=== PATIENT | male | born 1985 | race Caucasian/White ===

== ENCOUNTER 2022-09-06 17:50 | Emergency (ER) | payer SELFPAY ==
[2022-09-06 17:57] VITALS: BP 124/65; PULSE 88; RESP 16; TEMP 37.4; O2SAT 96; BMI 18.6
--- NOTE | 2022-09-06 17:57 | XRR_ITS ---
PROCEDURE INFORMATION: Exam: XR Chest Exam date and time: 09/06/2022 6:37 PM Age: 37 years old Clinical indication: Pain; Cough and shortness of breath; Chest pressure; Additional info: Cp TECHNIQUE: Imaging protocol: Radiologic exam of the chest. Views: 1 view. COMPARISON: No relevant prior studies available. FINDINGS: Lungs: Unremarkable. No consolidation. Pleural spaces: Unremarkable. No pleural effusion. No pneumothorax. Heart/Mediastinum: Unremarkable. No cardiomegaly. Bones/joints: Unremarkable. XR/XR chest 1V portable [id number] IMPRESSION: No acute findings.
--- NOTE | 2022-09-06 18:05 | ECG_ITS ---
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 Measurements Intervals [place] Rate: 67 P: 85 MO: 128 QRS: 93 QRSD: 89 T: 77 QT: 368 QTc: 389 Interpretive Statements SINUS RHYTHM WITH MARKED SINUS ARRHYTHMIA BORDERLINE RIGHT AXIS DEVIATION [QRS AXIS > 90] NONSPECIFIC ST & T-WAVE ABNORMALITY No previous ECG available for comparison Electronically Signed On 09-07-2022 14:18:55 TORQUE TESTER by Kermit Francis M.D. [id number]
[2022-09-06 18:06] VITALS: BP 125/73; PULSE 73; RESP 16; O2SAT 93
[2022-09-06 18:32] VITALS: RESP 16; O2SAT 98
[2022-09-06 18:32] LABS: Basophils % 0.3 %; Hematocrit 40.8 % (42.0-52.0); Hemoglobin 13.8 g/dL (11.7-16.6); Lymphocytes % 6.8 %; Mean Corpuscular HGB Conc 33.8 g/dL (30.0-36.0); Mean Corpuscular Hemoglobin 31.5 pg (28.0-34.0); Mean Corpuscular Volume 93.2 fl (80-94); Mean Platelet Volume 9.8 fL (7.4-10.4); Monocytes # 0.9 10^3/uL (0.2-0.9); Monocytes % 6.2 %; Neutrophils # 12.86 10^3/uL (1.8-7.7); Neutrophils % 86.2 %; Nucleated Red Blood Cells % 0 %; Platelet Count 243 10^3/cmm (130-400); Red Blood Count 4.38 10^6/uL (4.1-5.3); Red Cell Distribution Width 13.3 % (12.1-15.1); White Blood Count 14.9 10^3/uL (4.0-10.0)
[2022-09-06] MEDS: morphine 4 mg/mL SDV 1 mL IVP (18:32)
[2022-09-06] MEDS: ondansetron 2 mg/ML SDV 2 mL 4 MG IVP (18:33)
[2022-09-06 18:34] VITALS: BP 126/70; PULSE 82; RESP 16; O2SAT 94
--- NOTE | 2022-09-06 18:35 | W.ED.CHESTPA ---
HPI - Chest Pain General: Chief Complaint: Chest Pain Stated Complaint: chest pain Time Seen by Provider: 09/06/22 17:57 Source: patient and EMS Mode of arrival: EMS History of Present Illness: 37-year-old male states he had a cough over the last 2 days. He states that he started having some sharp right-sided pain he states is worse with palpation and with his cough he denies any shortness of breath he denies any vomiting or diarrhea states is improved with rest. Associated symptoms: Deny abdominal pain, fever(s), nausea or vomiting Review of Systems Const: Denies: fever(s), chills, body aches or change in appetite Eyes: Denies: blurry vision or eye discomfort ENMT: Denies: throat pain or dental pain Card: Reports: chest pain Resp: Reports: non-productive cough GI: Denies: abdominal pain, nausea, vomiting or diarrhea : Denies: dysuria Musc: Denies: neck pain or back pain Skin/Breast: Denies: rash Neuro: Denies: headache(s) Psych: Denies: depression [place]/Lymph: Denies: easy bruising All/Imm: Denies: urticaria PFSH ED PFSH: Medical History No pertinent past medical history Social History (Updated 09/06/22 @ 18:36 by Ani Bustillo MD) Alcohol intake: never Physical Exam Const: COMMON NORMALS: no acute distress, patient oriented x3 and healthy appearing HENMT: COMMON NORMALS: normocephalic and atraumatic HEAD & SCALP: normocephalic and atraumatic Eye: COMMON NORMALS: Equal, round and reactive pupils present and EOMs intact bilaterally PUPIL: Yes Equal, round and reactive pupils present Neck/C-Spine: COMMON NORMALS: full ROM and supple Chest: COMMONS NORMALS: normal inspection of the chest OTHER: point tender over right chest wall Resp: COMMON NORMALS: normal respiratory effort, No retractions, No use of accessory muscles and clear to auscultation bilaterally AUSCULTATION: clear to auscultation bilaterally Cardio: COMMON NORMALS: regular rate, regular rhythm and No murmurs present (Cardio) RATE: regular rate RHYTHM: regular rhythm GI: COMMON NORMALS: Normal to inspection, nondistended, normoactive bowel sounds present, Soft to palpation, non-tender and no masses PALPATION: Yes Soft to palpation Extremity: COMMON NORMALS: normal to inspection and full ROM Neuro: COMMON NORMALS: patient oriented x3, moves all extremities and no focal motor deficits Psych: COMMON NORMALS: mental status grossly normal, Normal thought process present and cooperative THOUGHT PROCESS: Normal thought process present Skin: COMMON NORMALS: no rashes or lesions noted and no wounds GENERAL SKIN EXAM: no rashes or lesions noted Course Vital Signs: Vital signs: Vital Signs Temperature 99.3 F 09/06/22 17:57 Pulse Rate 82 09/06/22 18:34 Respiratory Rate 16 09/06/22 18:34 Blood Pressure 126/70 09/06/22 18:34 Pulse Oximetry 94 09/06/22 18:34 Oxygen Delivery Me thod 09/06/22 18:34 MDM - Chest Pain Medical Decision Making Patient presents here with chest wall pain likely from coughing his troponin here is negative so his x-ray no pneumonia no pneumothorax pain is much improved here he is point tender on exam he is stable for discharge we will prescribe him Naprosyn he is to follow-up with PCP and return if worsening. Lab Data 09/06/22 18:19 09/06/22 18:19 Radiology Impressions Chest X-Ray 09/06/22 17:57 IMPRESSION: No acute findings. Laboratory Results WBC 14.9 10^3/uL (4.0-10.0) H 09/06/22 18:19 RBC 4.38 10^6/uL (4.1-5.3) 09/06/22 18:19 Hgb 13.8 g/dL (11.7-16.6) 09/06/22 18:19 Hct 40.8 % (42.0-52.0) L 09/06/22 18:19 MCV 93.2 fl (80-94) 09/06/22 18:19 MCH 31.5 pg (28.0-34.0) 09/06/22 18:19 MCHC 33.8 g/dL (30.0-36.0) 09/06/22 18:19 RDW 13.3 % (12.1-15.1) 09/06/22 18:19 Plt Count 243 10^3/cmm (130-400) 09/06/22 18:19 MPV 9.8 fL (7.4-10.4) 09/06/22 18:19 Neut % (Auto) 86.2 % 09/06/22 18:19 Lymph % (Auto) 6.8 % 09/06/22 18:19 [place] % (Auto) 6.2 % 09/06/22 18:19 Eos % (Auto) 0.0 % 09/06/22 18:19 Baso % (Auto) 0.3 % 09/06/22 18:19 Neut # (Auto) 12.86 10^3/uL (1.8-7.7) H 09/06/22 18:19 Lymph # (Auto) 1.0 10^3/uL (0.8-4.8) 09/06/22 18:19 [place] # (Auto) 0.9 10^3/uL (0.2-0.9) 09/06/22 18:19 Eos # (Auto) 0.0 10^3/uL (0.0-0.8) 09/06/22 18:19 Baso # (Auto) 0.0 10^3/uL (0.0-0.1) 09/06/22 18:19 Nucleated RBC % (auto) 0 % 09/06/22 18:19 Nucleated RBCs # 0.0 /100WBC 09/06/22 18:19 Sodium 135 mmol/L (136-145) L 09/06/22 18:19 Potassium 3.9 mmol/L (3.5-5.1) 09/06/22 18:19 Chloride 96 mmol/L (98-107) L 09/06/22 18:19 Carbon Dioxide 24 mmol/L (22-29) 09/06/22 18:19 Anion Gap 18.9 (5-19) 09/06/22 18:19 BUN 9 mg/dL (6-20) 09/06/22 18:19 Creatinine 0.8 mg/dL (0.7-1.2) 09/06/22 18:19 GFR Calculation 108.8 mL/min (90-130) 09/06/22 18:19 Glucose 100 mg/dL (65-115) 09/06/22 18:19 Calculated Osmolality 279 mOsm/kg (285-295) L 09/06/22 18:19 Calcium 9.1 mg/dL (8.5-10.5) 09/06/22 18:19 Total Bilirubin 0.5 mg/dL (0.15-1.2) 09/06/22 18:19 AST 18 U/L (0-40) 09/06/22 18:19 ALT 18 U/L (0-41) 09/06/22 18:19 Alkaline Phosphatase 104 U/L (40-130) 09/06/22 18:19 Troponin T Baseline 6 ng/L (0-15) 09/06/22 18:19 Total Protein 7.1 g/dL (6.6-8.7) 09/06/22 18:19 Albumin 4.1 g/dL (3.5-5.2) 09/06/22 18:19 Globulin 3.0 g/dL (1.3-4.6) 09/06/22 18:19 EKG Data EKG 1: I personally reviewed and interpreted this EKG as follows: EKG interpretation date: 09/06/22 EKG interpretation time: 18:05 Interpretation: nsr hr [address] or t wave abnormalities qrs 89 qtc 383 Discharge Plan Discharge Patient Disposition: Home Clinical Impression: Chest wall pain Prescriptions: New Naprosyn 500 mg tablet 500 mg PO BID PRN (Reason: pain) Qty: 20 0RF Discharge Orders: Discharge ED (Routine); Ordered 09/06/22 Ordered By: Ani Bustillo Discharge Diet: Advance as tolerated Discharge Activity: Resume usual activity Patient Instructions: Chest Wall Pain (ED) Coding Level of Care Code ED Steel Finisher for Ryanng Micaela
[2022-09-06 18:56] LABS: Troponin(5th) Baseline 6 ng/L (0-15)
[2022-09-06 18:58] LABS: Alanine Aminotransferase 18 U/L (0-41); Albumin Level 4.1 g/dL (3.5-5.2); Alkaline Phosphatase 104 U/L (40-130); Aspartate Amino Transferase 18 U/L (0-40); Blood Urea Nitrogen 9 mg/dL (6-20); Calcium 9.1 mg/dL (8.5-10.5); Carbon Dioxide 24 mmol/L (22-29); Chloride 96 mmol/L (98-107); Glomerular Filtration Rate 108.8 mL/min (90-130); Glucose 100 mg/dL (65-115); Osmolality Calculated 279 mOsm/kg (285-295); Sodium 135 mmol/L (136-145); Total Bilirubin 0.5 mg/dL (0.15-1.2); Total Protein 7.1 g/dL (6.6-8.7)
[2022-09-06 18:59] LABS: Anion Gap 18.9 (5-19); Potassium 3.9 mmol/L (3.5-5.1)
[2022-09-06 19:59] VITALS: BP 120/77; PULSE 81; RESP 17; O2SAT 95
[2022-09-06 20:02] VITALS: BP 123/66; PULSE 68; RESP 17; O2SAT 95
== END 2022-09-06 20:05 | disposition home or self-care (01) ==
PROVIDERS: Emergency Provider Emergency Medicine
DX: R07.89 Other chest pain (principal)
CPT/HCPCS: 36415; 71045; 80053; 84484; 85025; 93005; 96374; 96375; 99285; J2270; J2405

== ENCOUNTER 2023-04-05 22:48 | Emergency (ER) | payer SELFPAY ==
[2023-04-05 22:52] VITALS: BP 113/72; PULSE 78; RESP 20; TEMP 36.8; O2SAT 97; BMI 16.7
--- NOTE | 2023-04-05 22:54 | XRR_ITS ---
PROCEDURE INFORMATION: Exam: XR Chest Exam date and time: 04/05/2023 11:13 PM Age: 37 years old Clinical indication: Cough TECHNIQUE: Imaging protocol: Radiologic exam of the chest. Views: 1 view. COMPARISON: CR XR chest 1V portable [id number] 09/06/2022 6:37 PM FINDINGS: Lungs: Unremarkable. No consolidation. Pleural spaces: Unremarkable. No pleural effusion. No pneumothorax. Heart/Mediastinum: Unremarkable. No cardiomegaly. Bones/joints: Unremarkable. XR/XR chest 1V portable [id number] IMPRESSION: No acute findings.
--- NOTE | 2023-04-05 22:59 | W.ED.SOB ---
HPI - SOB/Dyspnea General: Chief Complaint: Shortness of Breath/Dyspnea Stated Complaint: right lung pain,cough Time Seen by Provider: 04/05/23 22:59 History of Present Illness: HPI Narrative: 37-year-old male patient comes in tonight for persistent cough for 1 week with fever yesterday. Patient reports that he coughed real hard tonight causing significant right chest wall pain anteriorly. Patient appears in moderate pain. Patient appears nontoxic. Patient has no chronic medical problems. Patient does smoke tobacco. Associated symptoms: Deny fever(s) Review of Systems General: Reports: 10 or more systems reviewed and unremarkable except in HPI and below Const: Denies: fever(s) Resp: Reports: dyspnea and pain on inspiration Musc: Reports: other (Right anterior chest wall pain) Neuro: Denies: headache(s) PFSH ED PFSH: Medical History No pertinent past medical history Social History (Updated 09/06/22 @ 18:36 by Ani Bustillo MD) Alcohol intake: never Physical Exam Const: COMMON NORMALS: alert HENMT: COMMON NORMALS: normocephalic HEAD & SCALP: normocephalic MOUTH: Normal oral and palatal mucosa present Neck/C-Spine: COMMON NORMALS: full ROM Chest: CHEST: Yes tenderness (Right anterior chest, no crepitus or flailing) Resp: COMMON NORMALS: clear to auscultation bilaterally AUSCULTATION: clear to auscultation bilaterally Cardio: COMMON NORMALS: regular rate and regular rhythm RATE: regular rate RHYTHM: regular rhythm GI: COMMON NORMALS: non-tender Back/Pelvis: COMMON NORMALS: thoracic and lumbar spine normal to inspection Extremity: COMMON NORMALS: normal to inspection Neuro: SENSORIUM/ORIENTATION: Yes alert Skin: COMMON NORMALS: turgor normal GENERAL SKIN EXAM: turgor normal Course Vital Signs: Vital signs: Vital Signs Temperature 98.3 F 04/05/23 22:52 Pulse Rate 77 04/05/23 23:11 Respiratory Rate 18 04/05/23 23:11 Blood Pressure 120/59 04/05/23 23:11 Pulse Oximetry 97 04/05/23 23:11 Oxygen Delivery Me thod Room Air 04/05/23 23:11 MDM - SOB/Dyspnea Medical Decision Making 37-year-old male patient comes in today for complaints of right anterior chest wall pain. On exam patient has some chest wall tenderness to palpation. No crepitus or flailing of the chest is noted. Lungs have good aeration throughout. Differential diagnosis includes but not limited to pneumothorax, rib fracture, costochondritis, pleurisy, pneumonia, bronchitis, muscle strain. EKG was unremarkable. Chest x-ray showed no pneumothorax or pneumonia. Believe patient probably has a strain of the muscles of the chest wall and probably a case of bronchitis. Patient be treated for bronchitis with doxycycline 100 mg twice a day and a dose of steroid. Patient will be given some naproxen for pain and inflammation and hydrocodone for severe pain. Patient agrees to treatment plan and need for follow-up or return to the ER. XR interpretation done by ED provider, pending radiology final review EKG Data EKG 1: EKG Interpretation Date: 04/05/23 EKG interpretation time: 23:05 Prior EKG tracings: not available for review Interpretation: EKG showed a sinus rhythm with a regular rate at [address] elevation or ectopy is noted. No prior exam was available for visual comparison. Computer Generated Interpretation: Sinus rhythm, possible left atrial enlargement, possible right ventricular conduction delay, compared to EKG from September 06, 2022, sinus arrhythmia no longer present, T wave abnormality no longer present. Discharge Plan Discharge Patient Disposition: Home Clinical Impression: Bronchitis, Anterior chest wall pain Condition: Stable Prescriptions: New hydrocodone-acetaminophen 5-325 mg tablet 1 tab PO Q8H PRN (Reason: pain (scale score 7-10)) Qty: 7 0RF doxycycline hyclate 100 mg tablet 100 mg PO BID 7 Days Qty: 13 0RF Continued Naprosyn 500 mg tablet 500 mg PO BID PRN (Reason: pain) Qty: 20 0RF Discharge Orders: Discharge ED (Routine); Ordered 04/05/23 Ordered By: Zain Porras Discharge Diet: Usual diet Discharge Activity: Increase activity as tolerated Patient Instructions: Chest Wall Pain (ED) Activity Restrictions/Additional Instructions: Drink plenty of water and fluid. Use acetaminophen and naproxen to control pain. Increase activity as tolerated. Use doxycycline 100 mg 2 times a day for the next 7 days for treatment of bronchitis and respiratory infection. Use hydrocodone as needed for severe pain. Follow-up with primary care for further instruction. Return to ED for worsening symptoms such as increasing shortness of breath, severe chest pain, or inability to hold fluids down. 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
--- NOTE | 2023-04-05 23:00 | ECG_ITS ---
[facility] Test Date: 2023-04-05 Pat Name: Adrian Cordon Department: Room: Gender: Male Manager Pharmaceutical: : 1985 Requested By: Zain Harper Order Number: [id number] Gurrola MD: Rory James M.D. Measurements Intervals [place] Rate: 71 P: 87 SC: 147 QRS: 85 QRSD: 87 T: 75 QT: 348 QTc: 380 Interpretive Statements SINUS RHYTHM POSSIBLE LEFT ATRIAL ENLARGEMENT [-0.1mV P-WAVE IN V1/V2] POSSIBLE RIGHT VENTRICULAR CONDUCTION DELAY [RSR (QR) IN V1/V2] Compared to ECG 09/06/2022 18:05:58 Sinus arrhythmia no longer present T-wave abnormality no longer present Electronically Signed On 04-06-2023 9:20:49 CDT by Rory James M.D. [id number]
[2023-04-05] MEDS: HYDROcodone-acetaminophen 10-325 mg Tablet 1 TAB PO (23:08)
[2023-04-05] MEDS: ketorolac 30 mg/mL INJ IM (23:09)
[2023-04-05 23:11] VITALS: BP 120/59; PULSE 77; RESP 18; O2SAT 97
[2023-04-05] MEDS: doxycycline 100 mg Tablet PO (23:25)
[2023-04-05] MEDS: dexamethasone 10 mg/mL INJ IM (23:25)
[2023-04-05 23:48] VITALS: BP 103/54; PULSE 72; PULSE 73; RESP 18; O2SAT 97
== END 2023-04-05 23:56 | disposition home or self-care (01) ==
PROVIDERS: Emergency Provider Nurse Practitioner Family
DX: J40 Bronchitis, not specified as acute or chronic (principal); R07.89 Other chest pain
CPT/HCPCS: 71045; 93005; 96372; 99284; J1100; J1885

== ENCOUNTER 2024-06-17 01:06 | Emergency (ER) | payer OTHER, SELFPAY ==
[2024-06-17 01:14] VITALS: BP 126/80; PULSE 58; RESP 15; TEMP 36.4; O2SAT 100; BMI 17.3
--- NOTE | 2024-06-17 01:58 | ED_ITS ---
HPI - Dental/Oral General: Chief complaint: Dental/Oral Stated complaint: Tooth Ache Time Seen by Provider: 06/17/24 01:48 History of Present Illness: 39-year-old male with 24 hours of tootha roselia. He has pain and swelling. He says the pain is in his lower right jaw. He has had problems with other teeth before but not these. He said that he had 12 teeth pulled last year he vomited at home due to the pain. Not experiencing shortness of breath. No fever. Related Data Previous Rx's Medication Instructions Recorded hydrocodone 5 mg-acetaminophen 325 1 tab PO Q8H PRN pain (scale score 04/05/23 mg tablet 7-10) #7 tabs naproxen 500 mg tablet (Naprosyn) 500 mg PO BID PRN pain #20 tabs 04/05/23 amoxicillin 875 mg-potassium 1 tab PO BID #20 tabs 06/17/24 clavulanate 125 mg tablet ketorolac 10 mg tablet 10 mg PO TID PRN pain #10 tabs 06/17/24 Allergies Allergy/AdvReac Type Severity Reaction Status Date / Time No Known Drug Allergies Allergy Unknown Verified 06/17/24 01:19 [facility] ED PFSH: Medical History No pertinent past medical history Social History Alcohol intake: never Physical Exam Const: COMMON NORMALS: no acute distress GENERAL APPEARANCE: cooperative; not ill appearing and not frail appearing HENMT: COMMON NORMALS: normocephalic, atraumatic and Normal external nose p resent HEAD & SCALP: normocephalic and atraumatic FACE & SINUS: normal facial exam and face symmetric NOSE: Normal external nose present MOUTH: tongue normal TEETH & GINGIVA: Yes caries, Yes dentures, Yes poor dentition and Yes other (Localized swelling and redness.) Eye: COMMON NORMALS: Equal, round and reactive pupils present and EOMs intact bilaterally PUPIL: Yes Equal, round and reactive pupils present Neck/C-Spine: GENERAL: Yes trachea midline Chest: CHEST: Yes Symmetrical chest wall rise Resp: COMMON NORMALS: normal respiratory effort, No retractions and No use of accessory muscles Cardio: COMMON NORMALS: regular rate and regular rhythm RATE: regular rate RHYTHM: regular rhythm Extremity: COMMON NORMALS: no pedal edema Neuro: FRANCIS COMA SCALE: document GCS findings Francis coma scale eye opening: Spontaneous Francis coma scale verbal response: Orientated [place] coma scale motor response: Obey commands Francis coma scale total score: 15 SENSORY EXAM: Yes extremities (intact) Psych: COMMON NORMALS: speech normal SPEECH: Yes normal speech Course Vital Signs: Vital signs: Vital Signs Temperature 97.5 F L 06/17/24 01:14 Pulse Rate 68 06/17/24 02:27 Respiratory Rate 15 06/17/24 01:14 Blood Pressure 136/78 06/17/24 02:27 Pulse Oximetry 99 06/17/24 02:27 Oxygen Delivery Me thod Room Air 06/17/24 01:14 MDM - Dental/Oral Medical Decision Making Antibiotics. Pain medication. Dental follow-up. All radiology interpretation(s) finalized by discharge Discharge Plan Discharge Patient Disposition: Home Clinical Impression: Gingival abscess Condition: Stable Prescriptions: New ketorolac 10 mg tablet 10 mg PO TID PRN (Reason: pain) Qty: 10 0RF amoxicillin-pot clavulanate 875-125 mg tablet 1 tab PO BID Qty: 20 0RF No Action hydrocodone-acetaminophen 5-325 mg tablet 1 tab PO Q8H PRN (Reason: pain (scale score 7-10)) Qty: 7 0RF Naprosyn 500 mg tablet 500 mg PO BID PRN (Reason: pain) Qty: 20 0RF Discharge Orders: Discharge ED (Routine); Ordered 06/17/24 Ordered By: Roger Hanna Patient Instructions: Dental Abscess (ED), Opioid Safety, Pain Management Activity Restrictions/Additional Instructions: See a dentist as soon as possible Coding Level of Care Code ED Middleware Consultant for Missy Hinojosa
[2024-06-17 02:27] VITALS: BP 136/78; PULSE 68; O2SAT 99
[2024-06-17] MEDS: dexamethasone 10 mg/mL INJ 8 MG PO (02:27)
[2024-06-17] MEDS: amoxicillin-clav 875-125 mg Tablet 1 TAB PO (02:27)
[2024-06-17] MEDS: ondansetron 4 MG Tablet 8 MG PO (02:27)
[2024-06-17] MEDS: oxyCODONE-APAP 5-325 mg Tablet 2 TAB PO (02:27)
== END 2024-06-17 02:28 | disposition home or self-care (01) ==
PROVIDERS: Emergency Provider Emergency Medicine
DX: K05.20 Aggressive periodontitis, unspecified (principal)
CPT/HCPCS: 99283; J1100; Q0162